=== PATIENT | male | born 1965 | race Caucasian/White ===

== ENCOUNTER 2020-04-13 20:19 | Outpatient (CLI) | payer OTHER, BC, SELFPAY ==
--- NOTE | ~2020-04-13 | MR_ITS ---
EXAMINATION: MR knee LT wo con DATE: 04/13/2020 21:00 INDICATION: Left knee pain. TECHNIQUE: Magnetic resonance imaging (MRI) of the left knee was performed without intravenous contra st. Sequences included axial PD-weighted FS FSE, coronal PD-weighted FSE and PD-weighted FS FSE, sagi ttal PD-weighted FSE, and sagittal T2-weighted FS FSE. COMPARISON: None. FINDINGS: Medial compartment: Medial meniscus is normal. There is shallow partial-thickness cartilage loss of femoral condyle and t ibial condyle. There is deep partial thickness cartilage loss of femoral condyle involving the anteri or articular surface. There is deep partial thickness cartilage loss of tibial condyle involving the anterior articular surface. Lateral compartment: There is a vertical tear of posterior horn of lateral meniscus. There is cartilage surface regularity of femoral condyle and tibial condyle. Patellofemoral compartment: There is deep partial thickness cartilage loss of patellar medial facet and median ridge with mild dailey bchondral edema-like marrow signal intensity. There is shallow partial-thickness cartilage loss of pa tellar lateral facet. There is shallow partial-thickness cartilage loss of trochlea. Ligaments and tendons: The anterior cruciate ligament is normal. There is a tear of posterior cruciate ligament characterize d by thickening and increased signal intensity. There is edema around medial collateral ligament, con sistent with mild sprain (grade 1). There is a partial tear of proximal fibular collateral ligament ( grade 2 sprain). There is mild patellar tendinopathy. Fluid: There is a moderate-sized knee joint effusion. There is a small Mccann's cyst. There is mild prepatell ar and superficial infrapatellar bursitis. Osseous/other: There is bone marrow edema in the anterior aspect of proximal tibia and and in fibular head, consiste nt with contusions. IMPRESSION: 1. Moderate chondrosis of medial and patellofemoral compartments and mild chondrosis of lateral tamica rtment. 2. Tear of lateral meniscus. 3. Sprains of medial collateral ligament and fibular collateral ligament. 4. Posterior cruciate ligament tear (grade 2 versus 3 sprain). 5. Moderate-sized knee joint effusion. 6. Bone marrow edema in anterior tibia and in fibular head, consistent with contusions. 7. Small Mccann's cyst. Reviewed, dictated and finalized at location A. IMPRESSION: 1. Moderate chondrosis of medial and patellofemoral compartments and mild chond rosis of lateral compartment. 2. Tear of lateral meniscus. 3. Sprains of medial collateral ligament and fibular collateral ligament. 4. Posterior cruciate ligament tear (grade 2 versus 3 sprain). 5. Moderate-sized knee joint effusion. 6. Bone marrow edema in anterior tibia and in fibular head, consistent with con tusions. 7. Small Mccann's cyst.
== END 2020-04-13 20:20 | disposition home or self-care (01) ==
PROVIDERS: PCP Family Medicine; Visit Provider Family Medicine
DX: M25.569 Pain in unspecified knee (principal); M71.22 Synovial cyst of popliteal space [Baker], left knee; S83.282A Other tear of lateral meniscus, current injury, left knee, initial encounter; X58.XXXA Exposure to other specified factors, initial encounter
CPT/HCPCS: 73721

== ENCOUNTER 2021-02-15 07:30 | Outpatient (CLI) | payer SELFPAY ==
[2021-02-15 10:50] LABS: Iron 180 ug/dL (49-181)
[2021-02-15 11:03] LABS: Alanine Aminotransferase 42 U/L (4-50); Albumin Level 4.7 g/dL (3.5-5.1); Alkaline Phosphatase 73 U/L (38-126); Anion Gap 6 mmol/L (8-16); Aspartate Amino Transferase 31 U/L (17-59); Bilirubin,Total 0.9 mg/dL (0.2-1.3); Blood Urea Nitrogen 17 mg/dL (9-20); Calcium 9.4 mg/dL (8.4-10.2); Carbon Dioxide 33 mmol/L (22-30); Chloride 101 mmol/L (98-107); Cholesterol 188 mg/dL (0-200); Estimated Glomerular Filt Rate > 60; Glucose 109 mg/dL (75-110); HDL Direct 47 mg/dL; Potassium 4.7 mmol/L (3.4-5.0); Sodium 140 mmol/L (137-145); Triglycerides 113 mg/dL (<150)
[2021-02-15 11:16] LABS: LDL Cholesterol Direct 113 mg/dL
[2021-02-15 11:49] LABS: Prostate Specific Antigen 0.5 ng/mL (< OR = 4.0)
== END 2021-02-15 07:31 | disposition home or self-care (01) ==
DX: Z00.00 Encounter for general adult medical examination without abnormal findings (principal); Z12.5 Encounter for screening for malignant neoplasm of prostate
CPT/HCPCS: 36415; 83540

== ENCOUNTER 2024-02-25 15:09 | Outpatient (CLI) | payer BC, SELFPAY ==
--- NOTE | ~2024-02-25 | MR_ITS ---
EXAMINATION: MR TMJS DATE: 02/25/2024 17:01 INDICATION: Left jaw pain. Myofascial pain. TECHNIQUE: Magnetic resonance imaging (MRI) of the temporomandibular joints was performed without int ravenous contrast. Sequences included closed-mouth and open-mouth views. COMPARISON: None. FINDINGS: The right temporomandibular joint demonstrates small osteophytes of the mandibular condyle. The anter ior and posterior bands of the disc are small and misshapen. There is normal position of the disc wit h the mouth closed and the mouth open. The left temporomandibular joint demonstrates small osteophytes of the mandibular condyle. The disc i s normal in morphology. There is normal position of the disc with the mouth closed and the mouth open . IMPRESSION: 1. Mild osteoarthritis of the temporomandibular joints. Reviewed, dictated and finalized at location A.
== END 2024-02-25 15:10 | disposition home or self-care (01) ==
PROVIDERS: PCP Family Medicine
DX: M79.18 Myalgia, other site (principal)
CPT/HCPCS: 70336